=== PATIENT | female | born 1985 | race Two or more races ===

== ENCOUNTER → 2020-02-02 06:00 | Outpatient (CLI) | payer OTHER ==
[~2020-02-02] VITALS: Ht 160 cm; Wt 53.5 kg
== END | disposition home or self-care (01) ==
LOC: LAB 06:00 → SURH 02-07 07:00 → EDSTATUS 02-07 08:00 → SURH 02-07 08:00
DX: E66.01 Morbid (severe) obesity due to excess calories (principal)

== ENCOUNTER 2020-04-10 09:00 | Day surgery (SDC) | payer OTHER | END 2020-04-10 13:00 | disposition home or self-care (01) | LOC: CIR.AMB 09:00 → O/R 19:20 | PROVIDERS: ATTEND Plastic Surgery | DX: E66.01 Morbid (severe) obesity due to excess calories (principal); N62 Hypertrophy of breast; E65 Localized adiposity ==

== ENCOUNTER 2023-06-14 13:39 | Inpatient (IN) | payer OTHER ==
[~2023-06-14] VITALS: Ht 160 cm; Wt 59.0 kg
== END 2023-06-26 14:26 | disposition home or self-care (01) | DRG 392 ==
LOC: ER 13:39 → OB/GYN 06-15 11:31
PROVIDERS: ADMIT Obstetrics & Gynecology; ATTEND Obstetrics & Gynecology
PROC: BW21ZZZ Computerized Tomography (CT Scan) of Abdomen and Pelvis (ICD-10-PCS; principal; 2023-06-14)
PROC: BW21YZZ Computerized Tomography (CT Scan) of Abdomen and Pelvis using Other Contrast (ICD-10-PCS; 2023-06-15)
PROC: BU4CZZZ Ultrasonography of Uterus and Ovaries (ICD-10-PCS; 2023-06-15)
PROC: BW21YZZ Computerized Tomography (CT Scan) of Abdomen and Pelvis using Other Contrast (ICD-10-PCS; 2023-06-22)
DX: K57.20 Diverticulitis of large intestine with perforation and abscess without bleeding (principal); Z20.822 Contact with and (suspected) exposure to COVID-19